=== PATIENT | female | born 1970 | race African-American/Black ===

== ENCOUNTER 2016-06-27 17:30 | Emergency (ER) | payer MEDICAID ==
[~2016-06-27] VITALS: Ht 167.6 cm; Wt 60.0 kg
[~2016-06-27 17:30] MED LIST: BISA-81 PO; CARI350T PO; DOCU-138 PO; GABA-531 PO; HYDR-519 PO; ZOLP10TA6 PO; aleve PO
[2016-06-27 17:43] VITALS: BP 126/87
[2016-06-27] MEDS ORDERED: OXYCODONE HCL/ACETAMINOPHEN 5/325MG TABLET PO ONE (18:15)
[2016-06-27] MEDS ORDERED: CYCLOBENZAPRINE 10MG TABLET PO ONE (18:15)
== END 2016-06-27 19:12 | disposition home or self-care (01) ==
LOC: ER 17:37
DX: M54.9 Dorsalgia, unspecified (principal); M54.2 Cervicalgia; G89.29 Other chronic pain; Z79.899 Other long term (current) drug therapy; F17.200 Nicotine dependence, unspecified, uncomplicated
CPT/HCPCS: 99283

== ENCOUNTER 2016-07-30 17:32 | Emergency (ER) | payer MEDICAID ==
[~2016-07-30] VITALS: Ht 177.8 cm; Wt 65.0 kg
[2016-07-30] MEDS ORDERED: ASPIRIN 81MG TABLET PO STA (18:51)
[2016-07-30] MEDS ORDERED: CLONIDINE 0.2MG TABLET PO ONE (19:00)
[2016-07-30] MEDS ORDERED: NITROGLYCERIN 0.4MG TABLET SL SL PRN (19:00)
[2016-07-30 19:18] LABS: BASOPHILS % 1.3 % (0.0-2.0); EOSINOPHILS % 0.5 % (0.0-5.0); HEMATOCRIT. 44.6 % (36.0-48.0); HEMOGLOBIN. 15.3 g/dL (12.0-16.0); LYMPHOCYTES % 31.5 % (20.0-50.0); MEAN CORPUSCULAR HEMOGLOBIN 31.5 pg (28.0-32.0); MEAN CORPUSCULAR HGB CONC 34.3 g/dL (31.0-37.0); MEAN CORPUSCULAR VOLUME 91.6 fL (81.0-99.0); MEAN PLATELET VOLUME 7.4 fl (7.4-10.4); MONOCYTES % 5.9 % (2.0-8.0); NEUTROPHILS % 60.8 % (40.0-76.0); PLATELET 380 x1000/uL (130-400); RED BLOOD CELL COUNT 4.87 mill/uL (4.2-5.4); RED CELL DISTRIBUTION WIDTH 12.9 % (11.6-14.6); WHITE BLOOD COUNT 11.6 x1000/uL (4.5-11.0)
[2016-07-30 19:30] LABS: HCG SCREEN NEGATIVE
[2016-07-30 19:31] LABS: ANION GAP 14; CALCIUM 10.4 mg/dL (8.5-10.1); CARBON DIOXIDE 27 mEq/L (21-32); CHLORIDE 100 mEq/L (98-107); INDEX HEMOLYSI 1 (1-3); INDEX ICTERIC 1 (1-4); INDEX LIPEMIC 1 (1-3); TROPONIN I < 0.02 ng/mL (0.00-0.04); UREA NITROGEN BLOOD 13 mg/dL (7-21); eGFR > 60 mL/min (>60)
[2016-07-30 19:32] LABS: D-DIMER 0.21 mg/L FEU (<0.50); INR 1.1; NT PRO B-TYPE NATRIURETIC PEP 12 pg/mL (5-125)
[2016-07-30] MEDS ORDERED: MORPHINE SULFATE 4 MG/ML CPJ (NOT FOR IM USE) IV STA (20:03)
[2016-07-30] MEDS ORDERED: ONDANSETRON HCL 4MG/2ML VIAL IV STA (20:03)
[2016-07-30] MEDS ORDERED: DOCUSATE SODIUM 100MG CAPSULE PO PRN (22:30)
[2016-07-30] MEDS ORDERED: IPRATROPIUM/ALBUTEROL 0.5-3(2.5)MG/3ML NEB INH PRN (22:30)
[2016-07-30] MEDS ORDERED: ONDANSETRON HCL 4MG/2ML VIAL IV PRN (22:30)
[2016-07-30] MEDS ORDERED: MAGNESIUM/ALUMINUM HYDROXIDE/SIMETHICONE 30ML UDC PO PRN (22:30)
[2016-07-30] MEDS ORDERED: ACETAMINOPHEN 325MG TABLET PO PRN (22:30)
[2016-07-30] MEDS ORDERED: CLONIDINE 0.1MG TABLET PO PRN (22:30)
[2016-07-30] MEDS ORDERED: ENOXAPARIN 40MG/0.4ML SYR SUBCUT SCH (22:30)
[2016-07-30] MEDS ORDERED: HYDROCODONE/ACETAMINOPHEN 5/325MG TABLET PO PRN (22:30)
[2016-07-30 22:43] VITALS: BP 138/96
[2016-07-31] MEDS ORDERED: ASPIRIN 81MG EC TABLET PO SCH (09:00)
== END 2016-07-30 23:20 | disposition left against medical advice (07) ==
LOC: ER 17:33
DX: I24.9 Acute ischemic heart disease, unspecified (principal); I10 Essential (primary) hypertension; F17.210 Nicotine dependence, cigarettes, uncomplicated; F12.10 Cannabis abuse, uncomplicated; M54.30 Sciatica, unspecified side; Z98.1 Arthrodesis status; Z98.890 Other specified postprocedural states; Z79.899 Other long term (current) drug therapy
CPT/HCPCS: 36415; 71010; 80048; 83880; 84484; 84703; 85025; 85379; 85610; 85730; 93005; 96374; 96375; 99285; J2270; J2405; Z7610

== ENCOUNTER 2016-10-08 18:10 | Emergency (ER) | payer MEDICAID ==
[~2016-10-08] VITALS: Ht 167.6 cm; Wt 63.0 kg
[2016-10-08 18:21] VITALS: BP 133/99
== END 2016-10-08 21:03 | disposition left against medical advice (07) ==
LOC: ER 18:10
DX: Z53.21 Procedure and treatment not carried out due to patient leaving prior to being seen by health care provider (principal)

== ENCOUNTER 2017-02-04 10:24 | Emergency (ER) | payer MEDICAID ==
[~2017-02-04] VITALS: Ht 167.6 cm; Wt 59.0 kg
[2017-02-04] MEDS ORDERED: ONDANSETRON HCL 4MG/2ML VIAL IV STA (11:18)
[2017-02-04] MEDS ORDERED: SODIUM CHLORIDE 0.9% 1,000 ML IV ONE (11:18)
[2017-02-04 11:42] LABS: CLARITY URINE CLOUDY (CLEAR); COLOR URINE DARK YELLOW (YELLOW); GLUCOSE URINE NEGATIVE (NEGATIVE); KETONES URINE TRACE (NEGATIVE); LEUKOCYTE ESTERASE URINE NEGATIVE (NEGATIVE); NITRITE URINE NEGATIVE (NEGATIVE); OCCULT BLOOD URINE 2+ (NEGATIVE); PROTEIN URINE 2+ (NEGATIVE); SPECIFIC GRAVITY URINE 1.032 (1.005-1.030)
[2017-02-04 12:12] LABS: PROTHROMBIN TIME 10.7 sec (9.4-11.6)
[2017-02-04 12:14] LABS: BASOPHILS % 0.7 % (0.0-2.0); HEMATOCRIT. 46.4 % (36.0-48.0); HEMOGLOBIN. 15.8 g/dL (12.0-16.0); LYMPHOCYTES % 13.3 % (20.0-50.0); MEAN CORPUSCULAR HEMOGLOBIN 31.4 pg (28.0-32.0); MEAN CORPUSCULAR VOLUME 92.4 fL (81.0-99.0); MONOCYTES % 2.2 % (2.0-8.0); NEUTROPHILS % 83.8 % (40.0-76.0); PLATELET 362 x1000/uL (130-400); RED BLOOD CELL COUNT 5.02 mill/uL (4.2-5.4); RED CELL DISTRIBUTION WIDTH 13.7 % (11.6-14.6)
[2017-02-04 12:15] LABS: CHLORIDE 107 mEq/L (98-107)
[2017-02-04 12:23] LABS: CARBON DIOXIDE 27 mEq/L (21-32)
[2017-02-04 12:39] LABS: HCG SCREEN NEGATIVE
[2017-02-04] MEDS ORDERED: KETOROLAC 30MG/ML VIAL IV ONE (12:45)
[2017-02-04] MEDS ORDERED: ONDANSETRON HCL 4MG/2ML VIAL IV ONE (14:00)
[2017-02-04 14:25] VITALS: BP 158/80
== END 2017-02-04 14:50 | disposition home or self-care (01) ==
LOC: ER 10:28
DX: R31.9 Hematuria, unspecified (principal); R11.2 Nausea with vomiting, unspecified; R53.1 Weakness
CPT/HCPCS: 36415; 74176; 80053; 81001; 83690; 84703; 85025; 85610; 96361; 96374; 96375; 96376; 99285; J1885; J2405; Z7610; J7030

== ENCOUNTER 2017-06-08 16:32 | Emergency (ER) | payer MEDICAID, OTHER ==
[~2017-06-08] VITALS: Ht 170.2 cm; Wt 57.0 kg
[2017-06-08] MEDS ORDERED: ONDANSETRON HCL 4MG/2ML VIAL IV STA (18:51)
[2017-06-08] MEDS ORDERED: FAMOTIDINE 20MG/2ML VIAL IV STA (18:51)
[2017-06-08] MEDS ORDERED: SODIUM CHLORIDE 0.9% 1,000 ML IV ONE (18:51)
[2017-06-08 19:13] LABS: BASOPHILS % 0.4 % (0.0-2.0); HEMATOCRIT. 43.2 % (36.0-48.0); HEMOGLOBIN. 14.7 g/dL (12.0-16.0); LYMPHOCYTES % 11.6 % (20.0-50.0); MEAN CORPUSCULAR VOLUME 94.1 fL (81.0-99.0); MEAN PLATELET VOLUME 7.7 fl (7.4-10.4); MONOCYTES % 3.7 % (2.0-8.0); NEUTROPHILS % 84.3 % (40.0-76.0); PLATELET 377 x1000/uL (130-400); PROTHROMBIN TIME 10.7 sec (9.4-11.6); RED BLOOD CELL COUNT 4.59 mill/uL (4.2-5.4); RED CELL DISTRIBUTION WIDTH 12.5 % (11.6-14.6)
[2017-06-08 19:14] LABS: CLARITY URINE CLEAR (CLEAR); COLOR URINE DARK YELLOW (YELLOW); KETONES URINE TRACE (NEGATIVE); LEUKOCYTE ESTERASE URINE NEGATIVE (NEGATIVE); NITRITE URINE NEGATIVE (NEGATIVE); OCCULT BLOOD URINE 3+ (NEGATIVE); PH URINE 5.5 (4.5-8.0); PROTEIN URINE 2+ (NEGATIVE); SPECIFIC GRAVITY URINE 1.029 (1.005-1.030)
[2017-06-08 19:17] LABS: CHLORIDE 104 mEq/L (98-107)
[2017-06-08 19:33] LABS: *BENZODIAZEPINES SCREEN URINE NEGATIVE (NEGATIVE); METHADONE URINE SCREEN NEGATIVE (NEGATIVE); PHENCYCLIDINE URINE SCREEN NEGATIVE (NEGATIVE)
[2017-06-08 19:34] LABS: *AMPHETAMINES SCREEN URINE NEGATIVE (NEGATIVE); *BARBITURATES SCREEN URINE NEGATIVE (NEGATIVE)
[2017-06-08 19:35] LABS: *COCAINE SCREEN URINE PRESUMTIVE POSITIVE (NEGATIVE); OPIATES URINE SCREEN PRESUMTIVE POSITIVE (NEGATIVE)
[2017-06-08 19:36] LABS: CANNABINOID URINE SCREEN PRESUMTIVE POSITIVE (NEGATIVE)
[2017-06-08] MEDS ORDERED: MORPHINE SULFATE 10 MG/ML CPJ IV ONE (20:00)
[2017-06-08] MEDS ORDERED: METOCLOPRAMIDE HCL 10MG/2ML VIAL IV ONE (21:00)
[2017-06-08 23:40] VITALS: BP 154/78
== END 2017-06-08 23:34 | disposition home or self-care (01) ==
LOC: ER 17:19
DX: R10.84 Generalized abdominal pain (principal); R11.2 Nausea with vomiting, unspecified; G89.29 Other chronic pain; F14.20 Cocaine dependence, uncomplicated; F11.20 Opioid dependence, uncomplicated; F12.20 Cannabis dependence, uncomplicated; F17.200 Nicotine dependence, unspecified, uncomplicated; M54.30 Sciatica, unspecified side; Z98.1 Arthrodesis status
CPT/HCPCS: 36415; 80053; 80305; 81003; 81025; 83690; 85025; 85610; 96361; 96374; 96375; 99285; J2270; J2405; J2765; J3490; J7030; Z7610

== ENCOUNTER 2019-11-12 19:27 | Inpatient (IN) | payer MEDICAID, OTHER ==
[~2019-11-12] VITALS: Ht 167.6 cm; Wt 53.0 kg
[~2019-11-12 19:27] MED LIST changes: -CARI350T PO; +CARI350T28 PO
[2019-11-12] MEDS ORDERED: ACETAMINOPHEN 325MG TABLET PO ONE (20:15)
[2019-11-12] MEDS ORDERED: DEXAMETHASONE 4MG/ML 1ML VIAL IV ONE (20:15)
[2019-11-12] MEDS ORDERED: BACLOFEN 10MG TABLET PO ONE (20:15)
[2019-11-12] MEDS ORDERED: LIDOCAINE 5% PATCH TOP SCH (20:15)
[2019-11-12] MEDS ORDERED: ONDANSETRON HCL 4MG/2ML INJ IV STA (20:15)
[2019-11-12] MEDS ORDERED: KETOROLAC 30MG/ML VIAL IV STA (20:15)
[2019-11-12] MEDS ORDERED: SODIUM CHLORIDE 0.9% 1,000 ML IV ONE ×2 (20:15→22:30)
[2019-11-12 21:26] LABS: BASOPHILS % 0.6 % (0.0-2.0); EOSINOPHILS % 0.1 % (0.0-5.0); HEMATOCRIT. 49.8 % (36.0-48.0); HEMOGLOBIN. 17.2 g/dL (12.0-16.0); LYMPHOCYTES % 14.7 % (20.0-50.0); MEAN CORPUSCULAR HEMOGLOBIN 32.8 pg (28.0-32.0); MEAN PLATELET VOLUME 7.5 fl (7.4-10.4); MONOCYTES % 7.2 % (2.0-8.0); NEUTROPHILS % 77.4 % (40.0-76.0); PLATELET 303 x1000/uL (130-400); RED BLOOD CELL COUNT 5.24 mill/uL (4.2-5.4); RED CELL DISTRIBUTION WIDTH 12.7 % (11.6-14.6)
[2019-11-12 21:31] LABS: CHLORIDE 98 mEq/L (98-107)
[2019-11-13] MEDS ORDERED: MORPHINE SULFATE 4 MG/ML CPJ (NOT FOR IM USE) IV ONE (00:45)
[2019-11-13 02:27] LABS: CLARITY URINE CLOUDY (CLEAR); COLOR URINE DARK YELLOW (YELLOW); KETONES URINE 1+ (NEGATIVE); LEUKOCYTE ESTERASE URINE TRACE (NEGATIVE); NITRITE URINE NEGATIVE (NEGATIVE); OCCULT BLOOD URINE 3+ (NEGATIVE); PH URINE 5.5 (4.5-8.0); PROTEIN URINE 3+ (NEGATIVE)
[2019-11-13 02:38] LABS: *AMPHETAMINES SCREEN URINE NEGATIVE (NEGATIVE); *BARBITURATES SCREEN URINE NEGATIVE (NEGATIVE); *BENZODIAZEPINES SCREEN URINE NEGATIVE (NEGATIVE); *COCAINE SCREEN URINE NEGATIVE (NEGATIVE)
[2019-11-13 02:39] LABS: CANNABINOID URINE SCREEN PRESUMTIVE POSITIVE (NEGATIVE); METHADONE URINE SCREEN NEGATIVE (NEGATIVE); OPIATES URINE SCREEN PRESUMTIVE POSITIVE (NEGATIVE); PHENCYCLIDINE URINE SCREEN NEGATIVE (NEGATIVE)
[2019-11-13] MEDS ORDERED: HYDRALAZINE 20MG/ML VIAL IV NR (04:45)
[2019-11-13] MEDS ORDERED: CEFTRIAXONE 1 G PREMIX 50 ML IV ONE (05:15)
[2019-11-13 07:34] VITALS: BP 126/71
[2019-11-13] MEDS ORDERED: MORPHINE SULFATE 2 MG/ML CPJ (NOT FOR IM USE) IV PRN (10:45)
[2019-11-13] MEDS ORDERED: KETOROLAC 30MG/ML VIAL IV PRN (10:45)
[2019-11-13] MEDS ORDERED: KETOROLAC 15MG/ML VIAL IV PRN (11:15)
== END 2019-11-13 11:00 | disposition left against medical advice (07) | DRG 465 ==
LOC: ER 19:27 → 6EST 11-13 01:26 → ENRESERV 11-13 06:58 → 6EST 11-13 09:03
PROVIDERS: ADMIT Internal Medicine; ATTEND Internal Medicine
DX: N20.1 Calculus of ureter (principal); G89.29 Other chronic pain; M54.2 Cervicalgia; M54.30 Sciatica, unspecified side; Z53.21 Procedure and treatment not carried out due to patient leaving prior to being seen by health care provider; M54.9 Dorsalgia, unspecified; F17.200 Nicotine dependence, unspecified, uncomplicated; Z79.899 Other long term (current) drug therapy; N17.9 Acute kidney failure, unspecified
CPT/HCPCS: 36415; 71045; 74176; 80053; 80305; 81003; 85025; 93005; 99285; J0360; J0696; J1100; J1885; J2270; J2405; J7030